=== PATIENT | female | born 1935 | race Caucasian/White ===

== ENCOUNTER → 2017-08-01 | Outpatient (CLI) | payer MEDICARE, OTHER ==
[~2017-08-01] MED LIST: ACE500 PO; ACET-2146 PO; ACET-2708 PO; ACET500T68 PO; ALBU8.5H IH; ALE70 PO; ALPR-429 PO; AMI25 PO; AMIT-104 PO; AMIT-106 PO; AMOX-559 PO; ASC500 PO; ASCO-182 PO; ASP325 PO; ASP81 PO; ASPI-1471 PO; AZIT-1 PO; BACL-1 PO; CA C1TAB85 PO; CALC1CAP; CALC300T PO; CALC500T6 PO; CALC600T71 PO; CHOL200074 PO; DIP5L PO; ERG400 PO; ESOM40CA42 PO; FERR325C2 PO; FLUT16SP19 NS; HCTZ25 PO; HYDR-2966 PO; HYDR-385 PO; HYDR-4309 PO; HYDR12.556 PO; IPRA15SP7 NS; LEVA15HF IH; LIFI1DRO; LIS10 PO; LISI-351 PO; LISI-353 PO; LISI-355 PO; LISI-362 PO; LISI20TA29 PO; LOR5/325 PO; LORA-1455 PO; LORA-630; LORA5TAB16 PO; LUTE10TA3 PO; MECL25TA9; MECL25TA9 PO; MELA1TAB25 PO; MELA3TAB31 PO; MELA5CAP2 PO; MELA5TAB6 PO; MELO-150 PO; METO-733 PO; METR-160 PO; MONT10TA PO; MONT10TA4 PO; OCTIVITE; OXY5 PO; OXYB5TAB80; OXYB5TAB86 PO; PANT40TA65 PO; PRED20TA6 PO; PROM-110 PO; PSE30 PO; SIMV-42 PO; SIMV-49 PO; TRAM-420 PO; TRAZ-156 PO; TYLENOL PM; VITA-200 PO; VITA200C39 PO; VITA400T7 PO; VITE400 PO; WOMENS MULTI VITAMIN; [UNRECOGNIZED DRUG - CODE] PO
--- NOTE | 2017-08-02 09:55 | RADIOLOGY IMAGING REPORT ---
FACILITY: [facility] - [place] PATIENT NAME: SHANEKA ALEMAN : [id number] MR: [id number] V: [id number] EXAM DATE: ORDERING PHYSICIAN: RAUL LOUIS TECHNOLOGIST: Alley Martins PROCEDURE:BILATERAL DIGITAL SCREENING MAMMOGRAM WITH CAD ASSISTED INTERPRETATION AND 3D BREAST TOMOSYNTHESIS. COMPARISON:Prior mammograms dated 08/24/15, 08/22/15, 08/18/14 and 08/17/13. INDICATIONS:SCREENING. FINDINGS: Moderately dense heterogeneous fibroglandular tissue is seen throughout the breasts. The parenchymal pattern has remained stable when allowing for difference in mammographic technique and patient positioning. There is no evidence of malignant appearing mass, malignant appearing calcification or other secondary sign of malignancy in either breast. DIAGNOSTIC CATEGORY 2--BENIGN FINDING. RECOMMENDATIONS: ROUTINE MAMMOGRAM AND CLINICAL EVALUATION. IMPRESSION: Bi-RADS 2: No significant abnormality is seen. Images were reviewed with R2CAD and 3D breast tomosynthesis. Dictated by: Malu Pan M.D. on 08/01/2017 at 16:30 Transcribed by: SANTOSH on 08/01/2017 at 20:35 Approved by: Malu Pan M.D. on 08/02/2017 at 9:53 [facility]
== END ==
LOC: MAMO 02:36
PROVIDERS: ATTEND Family Medicine
DX: Z12.31 Encounter for screening mammogram for malignant neoplasm of breast (principal)
CPT/HCPCS: 77063; 77067

== ENCOUNTER → 2018-02-11 | Outpatient (REF) | payer MEDICARE, OTHER ==
[~2018-02-11] MED LIST changes: -TRAZ-156 PO; +TRAZ50TA34 PO
== END ==
LOC: ZZSENDIN 13:15
PROVIDERS: ATTEND Family Medicine
DX: N39.0 Urinary tract infection, site not specified (principal)
CPT/HCPCS: 81001

== ENCOUNTER → 2018-02-14 | Outpatient (CLI) | payer MEDICARE, OTHER ==
[~2018-02-14] MED LIST changes: +DIAZ-308 PO; +NAPR220C12 PO
--- NOTE | 2018-02-14 18:58 | RADIOLOGY IMAGING REPORT ---
FACILITY: [facility] - [place] PATIENT NAME: Vidhya Eric : 1935 MR: [id number] V: [id number] EXAM DATE: ORDERING PHYSICIAN: VINCENZO PENNY TECHNOLOGIST: Location: [facility] - [place] Patient: Vidhya Eric : 1935 Visit/Account:[id number] Date of Sevice: 02/14/2018 EXAMINATION: CT Thorax W/O Contrast CT Abdomen W/O Contrast CT Pelvis W/O Contrast 02/14/2018 3:56 PM HISTORY: Low back pain TECHNIQUE: Spiral scan was obtained through the chest, abdomen and pelvis without intravenous contra st. One of the following dose optimization techniques was utilized in the performance of this exam: Autom ated exposure control; adjustment of the mA and/or kV according to the patient's size; or use of an i terative reconstruction technique. Specific details can be referenced in the facility's radiology C T exam operational policy. COMPARISON STUDIES: CTA chest the 07/19/2016, CT abdomen and pelvis 06/19/2016. FINDINGS: CHEST: Lungs / pleura: Small right lower lobe granuloma or calcified endobronchial focus. Additional 3 mm r ight upper lobe micronodule (image 54) and a small perifissural nodule (image 55). Additional benign -appearing perifissural nodule along the interlobar fissure on the left (image 47). Linear scarring in the bases, mostly on the right. Mediastinum / evan: negative Heart / pericardium: negative Vessels: Ascending thoracic aorta is nearly aneurysmal at 3.9 cm. Atherosclerosis with minimal coron rodolfo involvement. Musculoskeletal / Body wall: Degenerative changes in the spine with accentuated thoracic kyphotic cur vature. Lymph node assessment: No noncalcified adenopathy mediastinal and right hilar granulomatous calcifica tions. Lower neck: negative ABDOMEN AND PELVIS: Liver / biliary: Small stones in the gallbladder. Granulomatous calcifications in the liver. Pancreas: negative Spleen: Numerous granulomatous calcifications. Adrenal glands: negative Kidneys / retroperitoneum: Negative Pelvic structures: Prior hysterectomy. Bowel / peritoneum / mesenteries: negative Vessels: Atherosclerosis with aortoiliac tortuosity. No aneurysm. Musculoskeletal / Body wall: Previous L4-5 fusion with stable mild anterolisthesis. Stable L5-S1 ant erolisthesis. Severe L2-3 spondylosis with retrolisthesis, unchanged. No acute bony finding in the lumbar spine. Fatty ventral upper abdominal hernia. Small fatty umbilical hernia. Lymph node assessment: negative IMPRESSION: 1. No acute finding in the chest. Benign-appearing micronodular disease including old granulomatous changes. 2. No significant acute abnormality abdomen and pelvis. Degenerative changes in the spine with prev ious L4-5 fusion. Report Dictated By: Vernon Patel MD at 02/14/2018 6:40 PM Report E-Signed By: Vernon Patel MD at 02/14/2018 6:54 PM WSN:[email or web address]
== END ==
LOC: CT 15:34
PROVIDERS: ATTEND Family Medicine
DX: I71.2 Thoracic aortic aneurysm, without rupture (principal); R91.8 Other nonspecific abnormal finding of lung field; M51.34 Other intervertebral disc degeneration, thoracic region; K80.20 Calculus of gallbladder without cholecystitis without obstruction; K80.50 Calculus of bile duct without cholangitis or cholecystitis without obstruction; I25.10 Atherosclerotic heart disease of native coronary artery without angina pectoris; D73.89 Other diseases of spleen; K46.9 Unspecified abdominal hernia without obstruction or gangrene; K43.9 Ventral hernia without obstruction or gangrene; K42.9 Umbilical hernia without obstruction or gangrene
CPT/HCPCS: 71250; 74176

== ENCOUNTER 2018-02-15 11:41 | Emergency (ER) | payer MEDICARE, OTHER ==
[~2018-02-15 11:41] MED LIST changes: -DIAZ-308 PO; -NAPR220C12 PO
--- NOTE | 2018-02-15 12:10 | ER Report ---
History and Physical Time Seen By MD: 12:09 HPI/ROS CHIEF COMPLAINT: Right lower lateral back pain HISTORY OF PRESENT ILLNESS: Patient is an 82-year-old female here with complaints of right sided lateral back pain with no midline tenderness for the past one week. Patient was evaluated by her primary care doctor could place the patient on Flexeril and an antibiotic Keflex for suspected UTI. Patient reports that the muscle relaxant initially did not alleviate her symptoms nor did the antibiotic so the muscle relaxer was increased in dose however the patient was unable to obtain the prescription. Patient reports that the pain is localized in the right paraspinal musculature and is able to identify point of maximum tenderness which does not radiate. Patient denies fevers, chills, chest pain, shortness breath, nausea, vomiting, dysuria, hematuria. REVIEW OF SYSTEMS: Constitutional: No fever, no chills. Eyes: No discharge. ENT: No sore throat. Cardiovascular: No chest pain, no palpitations. Respiratory: No cough, no shortness of breath. Gastrointestinal: No abdominal pain, no vomiting. Genitourinary: No hematuria. Musculoskeletal: + Right-sided superficial back pain, which is reproducible on palpation with point tenderness.. Skin: No rashes. Neurological: No headache, no lower extremity weakness, no bowel or bladder incontinence or saddle anesthesias Allergies: Coded Allergies: Sulfa (Sulfonamide Antibiotics) (Verified Allergy, Severe, RASH AND DIARRHEA, 02/15/18) pneumococcal vaccine (Verified Allergy, Intermediate, 02/15/18) Uncoded Allergies: HAYFEVER (Allergy, Intermediate, SINUS CONGESTION, 01/16/12) Home Meds Active Scripts Diazepam (DIAZEPAM) 5 Mg Tablet, 2.5 MG PO BID Y for PAIN, #15 TAB Prov:SMILEY HERNANDEZ DO 02/15/18 Tramadol Hcl (TRAMADOL HCL) 50 Mg Tablet, 25 MG PO Q6H Y for PAIN, #20 TAB 0 Refills Prov:SMILEY HERNANDEZ DO 02/15/18 Naproxen Sodium (ALEVE) 220 Mg Capsule, 440 MG PO TID, #30 CAPSULE Prov:SMILEY HERNANDEZ DO 02/15/18 Trazodone Hcl (TRAZODONE HCL) 50 Mg Tablet, 1 TAB PO QHS, #90 TAB 1 Refill Prov:RANDY ODELL MD 12/10/16 Ferrous Sulfate (IRON) 325 Mg Capsule.er, 325 MG PO DAILY, #90 TAB 3 Refills Prov:RANDY ODELL MD 10/15/16 Hydrochlorothiazide (HYDROCHLOROTHIAZIDE) 25 Mg Tablet, 1 TAB PO QDAY, #90 TAB 4 Refills Prov:RANDY ODELL MD 09/13/16 Alprazolam (XANAX) 0.5 Mg Tablet, 1 TAB PO TID for Anxiety, #60 TAB Prov:RANDY ODELL MD 09/07/16 Esomeprazole Magnesium (NEXIUM) 40 Mg Capsule.dr, 1 CAP PO QDAY, #30 CAP Prov:RANDY ODELL MD 08/27/16 Oxybutynin Chloride (OXYBUTYNIN CHLORIDE) 5 Mg Tablet, 1 TAB PO HS, #30 TAB 0 Refills Prov:RANDY ODELL MD 08/22/16 Fluticasone Prop 50 Mcg Ns (FLONASE 50 MCG NS) 16 Gm Temple.susp, 2 SPRAYS NS QDAY, #1 BOT Prov:RANDY ODELL MD 02/01/16 Reported Medications Montelukast Sodium (MONTELUKAST SODIUM) 10 Mg Tablet, 1 TAB PO HS, TAB 10/10/16 Levalbuterol Tartrate (XOPENEX HFA) 15 Gm Hfa.aer.ad, 2 PUFF IH Q4H Y for WHEEZING Xopenex HFA 45 mcg/actuation inhaler 10/10/16 Ipratropium [place] 0.06% Ns (IPRATROPIUM BROMIDE 0.06% NS) 15 Ml [place], 0.03 SPRAY NS BID, SPRAY Atrovent 0.03% 2 sprays by nasal route every 12 hours 10/10/16 Lifitegrast (Xiidra) 5 % [place] 09/24/16 Tramadol Hcl (TRAMADOL HCL) 50 Mg Tablet, 50-100 MG PO Q4-6H, TAB 06/21/16 [Octivite] No Conflict Check 06/21/16 [Tylenol Pm] No Conflict Check, HS 06/21/16 Calcium Carbonate/Vitamin D3 (CALCIUM 600+D SOFTGEL) 1 Each Capsule 11/13/14 Cholecalciferol (Vitamin D3) (VITAMIN D-3) 2,000 Unit Capsule, 1000 UNIT PO DAILY, CAPSULE 10/24/14 Melatonin (MELATONIN) 5 Mg Tablet, 1 TAB PO HS 08/10/14 Hx Smoking: No Smoking Status: Never Smoker Exposure to Second Hand Smoke?: No Hx Substance Use Disorder: No Hx Alcohol Use: No Constitutional Vital Sign - Last 24 Hours 02/15/18 12:14 Temp 97.6 Pulse 89 Resp 16 B/P (MAP) 125/89 Pulse Ox 91 O2 Delivery Room Air Physical Exam General Appearance: The patient is alert, has no immediate need for airway protection and no signs of toxicity. Mild distress secondary to pain Eyes: Pupils equal and round no pallor or injection. ENT, Mouth: Mucous membranes are moist. Respiratory: There are no retractions, lungs are clear to auscultation. Cardiovascular: Regular rate and rhythm. Gastrointestinal: Abdomen is soft and non tender, no masses, bowel sounds normal. Neurological: No focal neurological deficits, no bowel or bladder incontinence, no saddle anesthesias Skin: Warm and dry, no rashes. Musculoskeletal: Neck is supple non tender. + Right-sided superficial back pain , which is reproducible on palpation with point tenderness Extremities are nontender, nonswollen and have full range of motion. DIFFERENTIAL DIAGNOSIS: After history and physical exam differential diagnosis was considered for back pain including but not limited to muscular pain, herniated disc, spine fracture, intra-abdominal causes and urinary tract infection. Medical Decision Making EKG/Imaging Imaging EXAMINATION: CT Thorax W/O Contrast CT Abdomen W/O Contrast CT Pelvis W/O Contrast 02/14/2018 3:56 PM HISTORY: Low back pain TECHNIQUE: Spiral scan was obtained through the chest, abdomen and pelvis without intravenous contrast. One of the following dose optimization techniques was utilized in the performance of this exam: Automated exposure control; adjustment of the mA and/ or kV according to the patient's size; or use of an iterative reconstruction technique. Specific details can be referenced in the facility's radiology CT exam operational policy. COMPARISON STUDIES: CTA chest the 07/19/2016, CT abdomen and pelvis 06/19/2016. FINDINGS: CHEST: Lungs / pleura: Small right lower lobe granuloma or calcified endobronchial focus. Additional 3 mm right upper lobe micronodule (image 54) and a small perifissural nodule (image 55). Additional benign-appearing perifissural nodule along the interlobar fissure on the left (image 47). Linear scarring in the bases, mostly on the right. Mediastinum / evan: negative Heart / pericardium: negative Vessels: Ascending thoracic aorta is nearly aneurysmal at 3.9 cm. Atherosclerosis with minimal coronary involvement. Musculoskeletal / Body wall: Degenerative changes in the spine with accentuated thoracic kyphotic curvature. Lymph node assessment: No noncalcified adenopathy mediastinal and right hilar granulomatous calcifications. Lower neck: negative ABDOMEN AND PELVIS: Liver / biliary: Small stones in the gallbladder. Granulomatous calcifications in the liver. Pancreas: negative Spleen: Numerous granulomatous calcifications. Adrenal glands: negative Kidneys / retroperitoneum: Negative Pelvic structures: Prior hysterectomy. Bowel / peritoneum / mesenteries: negative Vessels: Atherosclerosis with aortoiliac tortuosity. No aneurysm. Musculoskeletal / Body wall: Previous L4-5 fusion with stable mild anterolisthesis. Stable L5-S1 anterolisthesis. Severe L2-3 spondylosis with retrolisthesis, unchanged. No acute bony finding in the lumbar spine. Fatty ventral upper abdominal hernia. Small fatty umbilical hernia. Lymph node assessment: negative IMPRESSION: 1. No acute finding in the chest. Benign-appearing micronodular disease including old granulomatous changes. 2. No significant acute abnormality abdomen and pelvis. Degenerative changes in the spine with previous L4-5 fusion. ED Course/Re-evaluation ED Course Patient is a 82-year-old female here with complaints of right-sided superficial back pain, which is reproducible on palpation with point tenderness without radiation. Patient was initially treated with Keflex for suspected UTI and Flexeril for suspected back spasm without significant relief of symptoms. CT imaging of the abdomen and pelvis had been completed prior to ED evaluation and was unremarkable for intra-abdominal pathology. Upon further evaluation patient a point of maximum tenderness was identified and I performed a trigger point injection using Kenalog and bupivacaine 0.5%. Patient also was given Toradol and diazepam with significant relief of symptoms. Patient was given scripts for tramadol, naproxen and diazepam for outpatient treatment and advised to follow closely with PCP. Patient was stable at time of discharge. Procedure Trigger point injection: Point of maximum tenderness was identified in the right flank and the middle of the paraspinal muscle belly. I injected 2 mL of Kenalog and bupivacaine 0.5% mixture infiltrated into this area. Patient tolerated procedure well. Decision to Disposition Date: Feb 15, 2018 Decision to Disposition Time: 13:00 Depart Departure Latest Vital Signs Vital Signs Date Time Temp Pulse Resp B/P (MAP) Pulse Ox O2 Delivery O2 Flow Rate FiO2 02/15/18 12:14 97.6 89 16 125/89 91 Room Air Impression: Primary Impression: Musculoskeletal back pain Condition: Improved Disposition: HOME OR SELF-CARE Referrals: RAUL LOUIS MD (PCP) New Scripts Diazepam (DIAZEPAM) 5 Mg Tablet 2.5 MG PO BID Y for PAIN, #15 TAB Prov: SMILEY HERNANDEZ DO 02/15/18 Tramadol Hcl (TRAMADOL HCL) 50 Mg Tablet 25 MG PO Q6H Y for PAIN, #20 TAB 0 Refills Prov: SMILEY HERNANDEZ DO 02/15/18 Naproxen Sodium (ALEVE) 220 Mg Capsule 440 MG PO TID, #30 CAPSULE Prov: SMILEY HERNANDEZ DO 02/15/18 Patient Instructions: Diazepam (By mouth), Muscle Spasm (ED), Naproxen (By mouth), Tramadol (By mouth) Additional Instructions: You may take one half tablet of diazepam as needed for muscle spasm twice daily. You may take 2 tablets of naproxen every 12 hours as needed for pain control and one half tablet of tramadol as needed for breakthrough pain. Please note that the diazepam and tramadol may cause sedating effects. Please return promptly if you develop worsening back pain, bowel or bladder incontinence, fevers, leg weakness. SMILEY HERNANDEZ DO Feb 15, 2018 12:09
[2018-02-15 12:14] VITALS: BP 125/89
[2018-02-15] MEDS ORDERED: DIAZEPAM 50 MG/10 ML MDV IM ONE (12:35)
[2018-02-15] MEDS ORDERED: KETOROLAC 30 MG/ML VIAL IM ONE (12:35)
[2018-02-15] MEDS ORDERED: TRIAMCINOLONE ACE 40 MG/ML VL IM ONE (12:40)
[2018-02-15] MEDS ORDERED: TRAM-420 PO (12:53)
[2018-02-15] MEDS ORDERED: NAPR220C12 PO (12:53)
[2018-02-15] MEDS ORDERED: DIAZ-308 PO (12:53)
== END 2018-02-15 13:06 | disposition home or self-care (01) ==
LOC: ER 12:16
DX: M54.5 Low back pain (principal)
CPT/HCPCS: 96372; 99284; J1885; J3301; J3360

== ENCOUNTER → 2018-08-18 | Outpatient (CLI) | payer MEDICARE, OTHER ==
[~2018-08-18] MED LIST changes: +DIAZ-308 PO; -HYDR-4309 PO; +HYDR-653 PO; -METR-160 PO; +METR500T15 PO; +NAPR220C12 PO
--- NOTE | 2018-08-18 15:48 | RADIOLOGY IMAGING REPORT ---
FACILITY: PATIENT NAME: SHANEKA ALEMAN : [id number] MR: [id number] V: [id number] EXAM DATE: [id number] ORDERING PHYSICIAN: RAUL LOUIS TECHNOLOGIST: Michelle Hernandez PROCEDURE:BILATERAL DIGITAL SCREENING MAMMOGRAM WITH CAD ASSISTED INTERPRETATION & 3D TOMOSYNTHESIS COMPARISON:Prior mammogram 08/01/2017. INDICATIONS:SCREENING FINDINGS: Breast tissue demonstrates scattered fibroglandular tissue elements. There is no suspicious mass, calcification, or architectural distortion. DIAGNOSTIC CATEGORY 1--NEGATIVE. RECOMMENDATIONS: ROUTINE MAMMOGRAM AND CLINICAL EVALUATION. IMPRESSION: BIRADS 1: Negative. No mammographic evidence for malignancy. Dictated by: Vernon Veloz M.D. on 08/18/2018 at 14:55 Transcribed by: ANJELICA on 08/18/2018 at 15:01 Approved by: Vernon Veloz M.D. on 08/18/2018 at 15:47 [facility]
== END ==
LOC: MAMO 02:06
PROVIDERS: ATTEND Family Medicine
DX: Z12.31 Encounter for screening mammogram for malignant neoplasm of breast (principal)
CPT/HCPCS: 77063; 77067

== ENCOUNTER → 2018-11-19 | Outpatient (CLI) | payer MEDICARE, OTHER ==
--- NOTE | 2018-11-19 15:07 | RADIOLOGY IMAGING REPORT ---
[facility] PATIENT NAME: Vidhya Eric : 1935 MR: [id number] V: [id number] EXAM DATE: ORDERING PHYSICIAN: VINCENZO PENNY TECHNOLOGIST: Location: [facility] Patient: Vidhya Eric : 1935 Visit/Account:[id number] Date of Sevice: 11/19/2018 Exam type: CERVICAL SPINE 2 OR 3 VIEW History: Neck pain Comparison: None. Findings: Three views of the cervical spine were submitted. There is moderate to severe disc space narrowing a t C4-5 with large anterior osteophytes. There is severe disc space narrowing at C5-6 and C6-7 with l arge anterior osteophytes. There is mild loss of height of the C5 and C6 vertebral bodies. Extensiv e hypertrophic changes are identified of the facet joints bilaterally. There is no evidence of acute subluxations. No evidence of prevertebral soft tissue swelling. Calcifications are identified in t he left-sided the neck which may be vascular in etiology. The odontoid process is not ideally seen IMPRESSION: 1. 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
--- NOTE | 2018-11-19 15:30 | RADIOLOGY IMAGING REPORT ---
FACILITY: [facility] [place] PATIENT NAME: Vidhya Eric : 1935 MR: [id number] V: [id number] EXAM DATE: ORDERING PHYSICIAN: VINCENZO PENNY TECHNOLOGIST: [place] [facility] [place] Patient: Vidhya Eric : 1935 Visit/Account:[id number] Date of Sevice: 11/19/2018 Exam type: XR THORACIC SPINE AP & LAT History: Head and neck pain Comparison: July 25, 2009. Findings: Two views submitted There is an exaggeration of the normal thoracic kyphosis secondary to multilevel degenerative changes of the thoracic spine. The uppermost portion of the thoracic spine is not well seen on the lateral view . Incompletely imaged postsurgical changes lumbar spine. There also appear to be calcified subcarin al lymph nodes IMPRESSION: 1. 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
--- NOTE | 2018-11-19 15:50 | RADIOLOGY IMAGING REPORT ---
FACILITY: [facility] PATIENT NAME: Vidhya Eric : 1935 MR: [id number] V: [id number] EXAM DATE: ORDERING PHYSICIAN: VINCENZO PENNY TECHNOLOGIST: Location: [facility] Patient: Vidhya Eric : 1935 Visit/Account:[id number] Date of Sevice: 11/19/2018 Exam type: US VENOUS LOWER EXT LT History: Fell with bruising and pain of left leg Comparison: April 05, 2011. Findings: Left lower extremity veins are imaged including the left common femoral vein greater saphenous vein s uperficial femoral vein popliteal vein posterior tibial vein peroneal vein and anterior tibial vein r evealing no evidence of intraluminal thrombi. The veins were compressible and demonstrated augmentat ion IMPRESSION: 1. No sonographic evidence DVT involving the left lower extremity veins Report Dictated By: Malu Pan MD at 11/19/2018 3:44 PM Report E-Signed By: Malu Pan MD at 11/19/2018 3:45 PM WSN:[email or web address]
== END ==
LOC: RAD 14:17
PROVIDERS: ATTEND Family Medicine
DX: M79.605 Pain in left leg (principal); M54.2 Cervicalgia
CPT/HCPCS: 72040; 72070